=== PATIENT | female | born 1990 | race Caucasian/White ===

== ENCOUNTER 2016-09-29 08:35 | Inpatient (IN) | payer SELFPAY ==
[~2016-09-29] VITALS: Ht 162.6 cm; Wt 100.6 kg
[2016-09-29 08:46] VITALS: Ht 162.6 cm; Wt 100.6 kg
[2016-09-29 08:48] VITALS: BP 137/71; PULSE 79; RESP 18
[2016-09-29] MEDS ORDERED: FERR325C PO (08:55)
[2016-09-29] MEDS ORDERED: PRENAT PO (08:55)
[2016-09-29] MEDS ORDERED: LACTATED RINGER'S 1,000 ML IV ONE ×2 (09:30→13:28)
--- NOTE | 2016-09-29 09:37 | RADRPT ---
PROCEDURE: US OB. CLINICAL INDICATION: Ruptured membranes. TECHNIQUE: Multiple sonographic images of the pelvis were obtained. Transabdominal imaging only w as performed. The images were reviewed on a PACS workstation. COMPARISON: No prior studies are available for comparison. FINDINGS: Study is technically limited secondary to patient's body habitus. There is a single living intrauterine gestation in cephalic position. There is an posterior placenta. There is no evidence of previa. Amniotic fluid appears slightly reduced without quantitative assessment made. Active cardiac motion is seen at 163 beats per minute. The biparietal diameter is 8.7 cm consistent with a 96-zzhp-9-day gestation. The head circumference is 31.74 cm consistent with a 53-ezki-7-day gestation. The abdominal circumference is 34.81 cm consistent with 38-zcga-4-day gestation. The femur length is 6.73 cm consistent with a 36-nbap-5-day gestation. Estimated weight is 3092 g IMPRESSION: 1. Single living intrauterine gestation in cephalic position with a mean gestational age by ultrasound of 36 weeks 0 days plus or minus 18 days with estimated date of delivery of 10/27/2016. 2. Technically difficult study without quantitative assessment of amniotic fluid volume. 3. Estimated weight is 3092 g. RPTAT: [facility] Physician Doug Date Time Electronically viewed and signed by Physician Doug on 09/29/2016 09:37 /
--- NOTE | 2016-09-29 09:40 | RADRPT ---
PROCEDURE: US OB biophysical profile. CLINICAL INDICATION: Membrane rupture TECHNIQUE: Multiple sonographic images of the pelvis were obtained. The images were reviewed on a PACS workstation. COMPARISON: No prior studies are available for comparison. FINDINGS: There is a single viable intrauterine gestation. Cardiac activity is present with 159 beats per min alexis. There is a vertex presentation. The placenta is posterior. There is no evidence of placental abruption. There is a normal amount of amniotic fluid with an TAI = 14.2 cm. Biophysical profile: movement 2/2 tone 2/2. breathing 2/2 TAI 2/2 Total 02/20 RPTAT: AA . IMPRESSION: Normal biophysical profile. Normal TAI. Physician Minor Date Time Electronically viewed and signed by Physician Minor on 09/29/2016 09:40 /
[2016-09-29] MEDS ORDERED: DEXTROSE 5%-LR 1,000 ML IV SCH (11:24)
[2016-09-29] MEDS ORDERED: LACTATED RINGER'S 1,000 ML IV SCH (11:24)
[2016-09-29] MEDS ORDERED: METHYLERGONOVINE 0.2 MG INJ IM PRN ×2 (11:30→20:00)
[2016-09-29] MEDS ORDERED: CARBOPROST 250 MCG INJ IM PRN ×2 (11:30→20:00)
[2016-09-29] MEDS ORDERED: MISOPROSTOL 200 MCG TAB PR PRN ×2 (11:30→20:00)
[2016-09-29] MEDS ORDERED: OXYTOCIN 30 UNITS/LR 500 ML IV PRN ×2 (11:30→20:00)
[2016-09-29] MEDS ORDERED: AMPICILLIN 2 GM/NS (PMX) 100 ML IV SCH (11:30)
[2016-09-29] MEDS ORDERED: CEFAZOLIN 2 GM/50 ML (PMX) 50 ML IV SCH (11:30)
--- NOTE | 2016-09-29 11:46 | TRIAGE ---
OB Triage Datetime Report Generated by CPN: 09/29/2016 11:46 Datetime: 09/29/2016 08:44 Time of Arrival: 09/29/2016 08:30 EGA: 35.1 Arrived By: Ambulatory Arrived From: Home Chief Complaint: SROM Movement: Present Contractions: Regular Rupture of Membranes: Ruptured Vaginal Bleeding: Normal Show Vaginal Discharge: Denies Recent Sexual Intercouse: Denies Abdominal Trauma: Not Applicable Patient Complaints: Contractions; Other Time Provider Notified: 09/29/2016 08:53 Provider Notified: Angelo Initial Plan: NST, BPP, EFW, ROM +, begin oxygen, start IV and administer 1L LR bolus, acue check now Datetime: 09/29/2016 08:40 Stage of : OB Triage
[2016-09-29 11:51] LABS: ADD SCAN DIFF NO
[2016-09-29 11:56] LABS: BASOPHILS % 0.1 % (0.0-2.0); EOSINOPHILS % 0.3 % (0.0-7.0); HEMATOCRIT 33.9 % (37.0-47.0); HEMOGLOBIN 11.2 g/dl (12.0-16.0); LYMPHOCYTES # 2.5 10^3/ul (0.8-2.9); MEAN CORPUSCULAR HEMOGLOBIN 25.5 pg (29.0-33.0); MONOCYTE # 0.6 10^3/ul (0.3-0.9); MONOCYTES % 5.8 % (0.0-11.0); NEUTROPHIL # 7.5 10^3/ul (1.6-7.5); NEUTROPHILS % 70.5 % (39.0-77.0); PLATELET COUNT 228 10^3/UL (140-415); RED CELL DISTRIBUTION WIDTH 14.7 % (11.5-14.5); WHITE BLOOD COUNT 10.7 10^3/ul (4.8-10.8)
[2016-09-29 12:25] LABS: INR 0.95; PROTIME 12.7 Sec (12.2-14.2)
[2016-09-29 12:26] LABS: PARTIAL THROMBOPLASTIN TIME 27.4 Sec (25.0-35.0)
[2016-09-29] MEDS ORDERED: FAMOTIDINE 20 MG INJ IV ONE (13:30)
[2016-09-29] MEDS ORDERED: METOCLOPRAMIDE 10 MG INJ IV ONE (13:30)
[2016-09-29] MEDS ORDERED: CITRIC ACID/NA CITRATE 30 ML CUP PO ONE (13:30)
[2016-09-29] MEDS ORDERED: OXYTOCIN 30 UNITS/LR 500 ML IV ONE ×2 (14:15→15:07)
[2016-09-29] MEDS ORDERED: morphine SULFATE/PF (10 MG/10 ML) INJ ONE (14:15)
[2016-09-29] MEDS ORDERED: FENTAnyl 50 MCG/ML VIAL ONE (14:15)
--- NOTE | 2016-09-29 14:28 | PREOPHP ---
DATE OF ADMISSION: 09/29/2016 HISTORY: A 26-year-old female, 5, para 2-2-0-4, with an estimated date of delivery of 11/02, who presented with complaints of spontaneous rupture of membranes and contractions. PAST MEDICAL HISTORY: History of gestational diabetes with a previous , as well as this pr egnancy. PAST SURGICAL HISTORY: sections x3. ALLERGIES: NO KNOWN ALLERGIES. FAMILY HISTORY: Diabetes. COURSE: Significant for late care. The patient started her care at about 26 weeks of . The patient has been noncompliant with her visits, as well as visi ts with perinatology for diabetes management. PHYSICAL EXAMINATION: VITAL SIGNS: The patient is afebrile. Vital signs stable. HEAD, NECK AND CHEST: Examination is within normal limits. ABDOMEN: Soft, nontender and gravid. EXTREMITIES: Within normal limits. NEUROLOGIC: Within normal limits. On external monitoring contractions are noted. heart decelerations were noted. The patient wa s given intravenous hydration and oxygen via mask. Testing reveals a spontaneous rupture of membran es. IMPRESSION: at 35 weeks, with previous sections x3, gestational diabetes, noncom pliance, spontaneous rupture of membranes, and labor contractions. The patient desires surgical trina rilization. PLAN: Delivery by repeat section and bilateral tubal ligation. The risks, benefits and al ternatives of the procedure were explained to the patient. The patient said she understood and gave informed consent for the procedure. Dictated By: CHITRA HICKS/LEONA Conf#: [id number] DID#: [id number]
[2016-09-29] MEDS ORDERED: ONDANSETRON 4 MG INJ ONE (14:54)
[2016-09-29] MEDS ORDERED: ONDANSETRON 4 MG INJ IV PRN ×2 (15:00)
[2016-09-29] MEDS ORDERED: HYDROmorphONE (0.2 MG/ML) 10ML SYG IV PRN (15:00)
[2016-09-29] MEDS ORDERED: FENTAnyl 50 MCG/ML VIAL IV PRN (15:00)
[2016-09-29] MEDS ORDERED: MEPERIDINE 25 MG INJ IV PRN (15:00)
[2016-09-29] MEDS ORDERED: HYDROmorphONE 1 MG/ML SYG IV PRN ×2 (15:00)
[2016-09-29] MEDS ORDERED: PROCHLORPERAZINE 10 MG INJ IV PRN ×2 (15:00)
[2016-09-29] MEDS ORDERED: NALOXONE (0.4 MG/ML) INJ IV PRN (15:00)
[2016-09-29] MEDS ORDERED: ZOLPIDEM 5 MG TAB PO PRN (15:00)
[2016-09-29] MEDS ORDERED: KETOROLAC 30 MG INJ IV PRN (15:00)
[2016-09-29] MEDS ORDERED: DIPHENHYDRAMINE 50 MG INJ IV PRN ×2 (15:00)
[2016-09-29] MEDS: OXYTOCIN 30 UNITS/LR 500 ML IV SCH ×4 (15:30→23:31)
--- NOTE | 2016-09-29 16:09 | OPR ---
DATE OF OPERATION: 09/29/2016 PREOPERATIVE DIAGNOSES: at 35 weeks with previous section x3, spontaneous ruptur e of membranes, gestational diabetes and voluntary sterilization. POSTOPERATIVE DIAGNOSES: at 35 weeks with previous section x3, spontaneous ruptu re of membranes, gestational diabetes and voluntary sterilization. OPERATION PERFORMED: Repeat low transverse section and bilateral tubal ligation. SURGEON: CHITRA KESSLER MD. ANESTHESIA: Spinal. ANESTHESIOLOGIST: LILIA PONCE MD. PROCEDURE: The patient was taken to the operating room and placed on the operating table and table. After successful spinal anesthesia was given, the patient was placed in supine position. The area was prepared and draped in the usual sterile fashion. Spinal anesthesia was tested and was satisfa ctory. Using a scalpel, Pfannenstiel incision was made about 2 fingerbreadths above the symphysis p ubis. The incision was carried to the fascia. The fascia was incised and extended bilaterally with Meeks scissors. Two Daphne's were used to separate the fascia from the muscle. The muscle was diss ected down to peritoneum. The peritoneum was secured with 2 Kellys and incised with Metzenbaum scis sors. Using scalpel, a small transverse incision was made on the lower segment of the uterus. Upon entering the uterine cavity, bandage scissors were inserted to extend the incision bilaterally, cur jimenez up. Baby was delivered from cephalic presentation. After suctioning clear amniotic fluid, he w as handed off to the team in attendance. Apgars were 8 and 9. The placenta was delivered without difficulty. The uterus was closed with #1 Monocryl continuous locked. After assuring hemos tasis, both ovaries and tubes were inspected, all looked normal. The right fallopian tube was grasp ed with a Mcloud clamp. Using 0 plain suture ligature, a 5 cm segment of the right fallopian tube was doubly ligated. Using Metzenbaum scissors, a portion of the right fallopian tube above the liga michelle area was excised and sent to pathology. Same procedure was repeated on the left fallopian tube. After assuring hemostasis, the peritoneal cavity was irrigated with warm saline. The peritoneum w as closed with 2-0 Vicryl continuous. The fascia was closed with #1 Vicryl continuous in 2 segments . Subcutaneous tissue was reapproximated with 2-0 plain. The skin was closed with abrahan. ESTIMATED BLOOD LOSS: 600 mL. COMPLICATIONS: None. COUNTS: All counts were correct. Dictated By: CHITRA HICKS/LEONA Conf#: [id number] DID#: [id number]
[2016-09-29 19:00] VITALS: BP 139/66; PULSE 75; RESP 18
[2016-09-29 19:45] VITALS: BP 116/82; PULSE 79; RESP 18
[2016-09-29] MEDS ORDERED: OXYCODONE/ACETAMINOPHEN (5/325) TAB PO PRN (20:00)
[2016-09-29] MEDS ORDERED: LANOLIN 7 GM TUBE TOP PRN (20:00)
[2016-09-29] MEDS: SENNA/DOCUSATE NA (8.6MG/50MG) TAB PO SCH (20:53)
[2016-09-29] MEDS: KETOROLAC 30 MG INJ IV PRN (21:37)
[2016-09-30 00:15] VITALS: BP 130/67; PULSE 80; RESP 18
[2016-09-30] MEDS: LACTATED RINGER'S 1,000 ML IV SCH ×3 (00:30→11:31)
[2016-09-30 03:45] VITALS: BP 121/67; PULSE 88; RESP 18
[2016-09-30] MEDS: KETOROLAC 30 MG INJ IV PRN ×2 (03:45→08:44)
[2016-09-30 07:42] LABS: ADD SCAN DIFF NO
[2016-09-30 07:55] LABS: BASOPHILS % 0.1 % (0.0-2.0); EOSINOPHILS % 0.2 % (0.0-7.0); HEMATOCRIT 26.8 % (37.0-47.0); HEMOGLOBIN 8.7 g/dl (12.0-16.0); LYMPHOCYTES # 2.2 10^3/ul (0.8-2.9); LYMPHOCYTES % 24.4 % (15.0-51.0); MEAN CORPUSCULAR HEMOGLOBIN 25.1 pg (29.0-33.0); MEAN CORPUSCULAR HGB CONC 32.5 g/dl (32.0-37.0); MEAN CORPUSCULAR VOLUME 77.2 fl (82.0-101.0); MEAN PLATELET VOLUME 11.6 fl (7.4-10.4); MONOCYTE # 0.6 10^3/ul (0.3-0.9); NEUTROPHIL # 6.1 10^3/ul (1.6-7.5); PLATELET COUNT 181 10^3/UL (140-415); RED BLOOD COUNT 3.47 10^6/ul (4.20-5.40); RED CELL DISTRIBUTION WIDTH 14.9 % (11.5-14.5); WHITE BLOOD COUNT 8.9 10^3/ul (4.8-10.8)
[2016-09-30 08:00] VITALS: BP 123/67; PULSE 89; RESP 18
[2016-09-30] MEDS: SENNA/DOCUSATE NA (8.6MG/50MG) TAB PO SCH ×2 (08:43→21:05)
[2016-09-30 12:30] VITALS: BP 125/68; PULSE 88; RESP 20
[2016-09-30] MEDS: OXYCODONE/ACETAMINOPHEN (5/325) TAB PO PRN ×2 (14:48→21:54)
[2016-09-30 16:03] VITALS: BP 131/66; PULSE 86; RESP 20
--- NOTE | 2016-09-30 18:46 | QN ---
Documentation Comment No complaint Afebrile VSS Abdomen soft Stable Continue with present care. CHITRA KESSLER MD Sep 30, 2016 18:46
[2016-09-30 19:45] VITALS: BP 128/76; PULSE 72; RESP 20
[2016-09-30] MEDS: ACCU-CHEK XX SCH (20:05)
[2016-09-30] MEDS ORDERED: FERROUS SULFATE (EC) 325 MG TAB PO SCH (21:00)
[2016-09-30] MEDS: IBUPROFEN 800 MG TAB PO SCH (21:06)
[2016-09-30] MEDS: FERROUS SULFATE (EC) 325 MG TAB PO SCH (21:06)
[2016-09-30 22:46] LABS: ADD SCAN DIFF NO
[2016-09-30 22:47] LABS: BASOPHILS % 0.1 % (0.0-2.0); EOSINOPHILS % 0.1 % (0.0-7.0); HEMATOCRIT 28.5 % (37.0-47.0); HEMOGLOBIN 9.4 g/dl (12.0-16.0); LYMPHOCYTES # 1.2 10^3/ul (0.8-2.9); LYMPHOCYTES % 13.1 % (15.0-51.0); MEAN CORPUSCULAR HEMOGLOBIN 25.3 pg (29.0-33.0); MEAN CORPUSCULAR VOLUME 76.6 fl (82.0-101.0); MEAN PLATELET VOLUME 11.3 fl (7.4-10.4); MONOCYTE # 0.5 10^3/ul (0.3-0.9); MONOCYTES % 5.9 % (0.0-11.0); NEUTROPHIL # 7.2 10^3/ul (1.6-7.5); NEUTROPHILS % 80.5 % (39.0-77.0); PLATELET COUNT 211 10^3/UL (140-415); RED BLOOD COUNT 3.72 10^6/ul (4.20-5.40); RED CELL DISTRIBUTION WIDTH 14.8 % (11.5-14.5)
[2016-09-30] MEDS: PIPER-TAZO 3.375 GM IV (PMX) 100 ML IVPB SCH (23:43)
[2016-10-01] MEDS ORDERED: PIPER-TAZO 3.375 GM IV (PMX) 100 ML IVPB SCH
[2016-10-01] MEDS: OXYCODONE/ACETAMINOPHEN (5/325) TAB PO PRN ×2 (03:44→09:38)
[2016-10-01 04:00] VITALS: BP 142/96; PULSE 77; RESP 18
[2016-10-01] MEDS: PIPER-TAZO 3.375 GM IV (PMX) 100 ML IVPB SCH ×4 (05:36→23:45)
[2016-10-01] MEDS: IBUPROFEN 800 MG TAB PO SCH ×3 (05:59→22:05)
[2016-10-01 06:44] LABS: ADD SCAN DIFF NO
[2016-10-01 06:51] LABS: BASOPHILS % 0.1 % (0.0-2.0); EOSINOPHILS % 0.2 % (0.0-7.0); HEMATOCRIT 28.2 % (37.0-47.0); HEMOGLOBIN 9.1 g/dl (12.0-16.0); LYMPHOCYTES % 22.9 % (15.0-51.0); MEAN CORPUSCULAR HEMOGLOBIN 25.2 pg (29.0-33.0); MEAN CORPUSCULAR HGB CONC 32.3 g/dl (32.0-37.0); MEAN CORPUSCULAR VOLUME 78.1 fl (82.0-101.0); MEAN PLATELET VOLUME 11.8 fl (7.4-10.4); MONOCYTE # 0.7 10^3/ul (0.3-0.9); MONOCYTES % 7.7 % (0.0-11.0); NEUTROPHIL # 5.9 10^3/ul (1.6-7.5); NEUTROPHILS % 68.6 % (39.0-77.0); PLATELET COUNT 216 10^3/UL (140-415); RED BLOOD COUNT 3.61 10^6/ul (4.20-5.40); RED CELL DISTRIBUTION WIDTH 14.7 % (11.5-14.5); WHITE BLOOD COUNT 8.6 10^3/ul (4.8-10.8)
[2016-10-01] MEDS: ACCU-CHEK XX SCH ×4 (08:15→20:05)
[2016-10-01] MEDS: MULTIVIT/MIN/FOLATE/IRON/PREN TAB PO SCH (08:15)
[2016-10-01] MEDS: SENNA/DOCUSATE NA (8.6MG/50MG) TAB PO SCH ×2 (08:16→20:35)
[2016-10-01] MEDS: FOLIC ACID 1 MG TAB PO SCH (08:16)
[2016-10-01] MEDS: FERROUS SULFATE (EC) 325 MG TAB PO SCH ×3 (08:16→20:35)
[2016-10-01 08:54] VITALS: BP 130/74; PULSE 74; RESP 18
[2016-10-01 12:30] VITALS: BP_SYST 140; BP_SYST 141; BP_DIAS 72; PULSE 74; RESP 18
[2016-10-01 16:19] VITALS: BP 140/74; PULSE 77; RESP 20
--- NOTE | 2016-10-01 20:00 | QN ---
Documentation Comment No complaint Afebrile VSS Abdomen soft Continue with present care. CHITRA KESSLER MD Oct 01, 2016 20:00
[2016-10-01 20:25] VITALS: BP 132/70; PULSE 80; RESP 19
[2016-10-02 03:50] VITALS: BP 138/80; PULSE 75; RESP 19
[2016-10-02] MEDS: OXYCODONE/ACETAMINOPHEN (5/325) TAB PO PRN ×2 (03:54→20:04)
[2016-10-02] MEDS: PIPER-TAZO 3.375 GM IV (PMX) 100 ML IVPB SCH ×2 (05:14→12:41)
[2016-10-02] MEDS: IBUPROFEN 800 MG TAB PO SCH ×2 (05:15→12:42)
[2016-10-02] MEDS: ACCU-CHEK XX SCH ×3 (06:00→13:50)
[2016-10-02 07:45] VITALS: BP 130/85; PULSE 76; RESP 18
[2016-10-02 08:16] LABS: ADD SCAN DIFF NO
[2016-10-02 08:43] LABS: BASOPHILS % 0.3 % (0.0-2.0); EOSINOPHILS # 0.2 10^3/ul (0.0-0.5); EOSINOPHILS % 2.3 % (0.0-7.0); HEMATOCRIT 27.9 % (37.0-47.0); HEMOGLOBIN 8.9 g/dl (12.0-16.0); LYMPHOCYTES # 2.3 10^3/ul (0.8-2.9); LYMPHOCYTES % 32.2 % (15.0-51.0); MEAN CORPUSCULAR HEMOGLOBIN 25.1 pg (29.0-33.0); MEAN CORPUSCULAR HGB CONC 31.9 g/dl (32.0-37.0); MEAN CORPUSCULAR VOLUME 78.6 fl (82.0-101.0); MEAN PLATELET VOLUME 11.3 fl (7.4-10.4); MONOCYTE # 0.4 10^3/ul (0.3-0.9); MONOCYTES % 6.1 % (0.0-11.0); NEUTROPHIL # 4.1 10^3/ul (1.6-7.5); NEUTROPHILS % 58.5 % (39.0-77.0); PLATELET COUNT 235 10^3/UL (140-415); RED BLOOD COUNT 3.55 10^6/ul (4.20-5.40); RED CELL DISTRIBUTION WIDTH 14.8 % (11.5-14.5)
[2016-10-02] MEDS ORDERED: DIPHTH/TET/ACEL PERTUSS (ADULT) 0.5 ML VIAL IM* ONE (09:00)
[2016-10-02] MEDS: MULTIVIT/MIN/FOLATE/IRON/PREN TAB PO SCH (09:15)
[2016-10-02] MEDS: FERROUS SULFATE (EC) 325 MG TAB PO SCH ×3 (09:15→20:04)
[2016-10-02] MEDS: SENNA/DOCUSATE NA (8.6MG/50MG) TAB PO SCH (09:15)
[2016-10-02] MEDS: FOLIC ACID 1 MG TAB PO SCH (09:15)
[2016-10-02 16:24] VITALS: BP 122/74; PULSE 88
[2016-10-02 19:40] VITALS: BP 132/80; PULSE 72; RESP 20
--- NOTE | 2016-10-03 10:56 | DS ---
DATE OF ADMISSION: 09/29/2016 DATE OF DISCHARGE: 10/02/2016 ADMITTING DIAGNOSIS: at 35 weeks with previous section, gestational diabetes, sp ontaneous rupture of membranes. HISTORY: A 26-year-old female 5, para 2-2-0-4 at admission, para 2-3-0-5 at the time of dis charge at 35 weeks gestation presented with spontaneous rupture of membranes. PAST SURGICAL HISTORY: Significant for section x3. On 09/29/2016 after obtaining informed consent, the patient underwent a repeat low transverse section and bilateral tubal ligatio n. The patient's operation was uncomplicated. Postoperatively, patient was given clear liquid diet , which was advanced to regular diet, which she tolerated well. The patient is discharged on postop day #3 having had adequate bladder and bowel function. CONDITION ON DISCHARGE: Stable. DISCHARGE INSTRUCTIONS DIET: Regular. ACTIVITIES: Pelvic rest and no strenuous activities. MEDICATIONS: 1. Motrin as needed for pain. 2. Continue with vitamins and ferrous sulfate. Follow up in clinic in 4 days. FINAL DIAGNOSES: 1. , delivered by section. 2. Previous section. 3. spontaneous rupture of membranes. 4. labor. 5. Gestational diabetes. 6. Voluntary sterilization. 7. Mother with single liveborn. Dictated By: CHITRA HICKS/LEONA Conf#: [id number] DID#: [id number]
== END 2016-10-02 21:20 | disposition home or self-care (01) | DRG 766 ==
LOC: OBT 08:35 → L-D 08:36 → OBT 11:19 → L-D 11:22 → PP1 18:55
PROVIDERS: ADMIT Obstetrics & Gynecology; ATTEND Obstetrics & Gynecology
PROC: 0UB70ZZ Excision of Bilateral Fallopian Tubes, Open Approach (ICD-10-PCS; 2016-09-29)
PROC: 10D00Z1 Extraction of Products of Conception, Low, Open Approach (ICD-10-PCS; principal; 2016-09-29 14:45)
DX: O42.013 Preterm premature rupture of membranes, onset of labor within 24 hours of rupture, third trimester (principal); O24.429 Gestational diabetes mellitus in childbirth, unspecified control; Z37.0 Single live birth; Z3A.35 35 weeks gestation of pregnancy; O76 Abnormality in fetal heart rate and rhythm complicating labor and delivery; Z91.19 Patient's noncompliance with other medical treatment and regimen; Z30.2 Encounter for sterilization; O34.211 Maternal care for low transverse scar from previous cesarean delivery
CPT/HCPCS: 36415; 76815; 76818; 82962; 84112; 85025; 85610; 85730; 86592; 86850; 86885; 86900; 86901; 86920; 87040; 87086; 88302; 88307; 90715; 96360; 96361; 99464; G0463; J0290; J0690; J1170; J1885; J2274; J2405; J2543; J2590; J2765; J2790; J3010; J7120; J7121